=== PATIENT | female | born 1985 | race American Indian/Alaskan Native ===

== ENCOUNTER 2017-01-26 16:33 | Emergency (ER) | payer MEDICAID ==
[2017-01-26 16:46] VITALS: BP 159/93
== END 2017-01-26 23:34 | disposition left against medical advice (07) ==
LOC: ED 16:33
DX: R42 Dizziness and giddiness (principal); R11.0 Nausea; Z53.21 Procedure and treatment not carried out due to patient leaving prior to being seen by health care provider
CPT/HCPCS: 82962

== ENCOUNTER 2017-04-13 13:01 | Emergency (ER) | payer MEDICAID ==
--- NOTE | 2017-04-13 14:17 | XRay Report ---
ROUTINE CHEST, TWO VIEWS: HISTORY: cough. The trachea, heart, mediastinal contour, lung kwan and bony thorax are unremarkable. IMPRESSION: Unremarkable chest x-ray.
[2017-04-13] MEDS ORDERED: ATROVENT IH ONE (16:07)
[2017-04-13] MEDS ORDERED: XOPENEX IH ONE (16:07)
--- NOTE | 2017-04-13 16:07 | Emergency Department Report ---
HPI - General Chief Complaint: Upper Respiratory Infection Time Seen by Provider: 04/13/17 16:00 - HPI HPI: Patient here with family member here she reports that she has shortness of breath and coughing for almost a month. She reports that she is wheezing. She denies any lung disease. Denies any asthma or bronchitis history. Patient has diabetes. She denies any chest pain. She said cough is worse at night. Patient said it started with her having runny nose and nasal congestion. Denies any fever or chills. Denies any nausea or vomiting. Denies any back pain or abdominal pain. Last menstrual period was 02/23/2017. Taking over-the- counter cough and cold without any relief. ED Past Medical Hx - Past Medical History Previous Medical History?: Yes Hx Diabetes: Yes - Surgical History Past Surgical History?: Yes Hx Cholecystectomy: Yes Additional Surgical History: C/S - Family History Family history: diabetes, hypertension - Social History Smoking Status: Current Every Day Smoker Substance Use Type: Alcohol - Medications Home Medications: Home Medications Medication Instructions Recorded Confirmed Last Taken Type ALBUTEROL NEB's [Proventil 0.083% 2.5 mg IH Q4-6H PRN #1 packet 04/13/17 Unknown Rx NEBS] Amoxicillin/K Clav Tab [Augmentin 1 tab PO Q12HR 10 Days #20 tab 04/13/17 Unknown Rx 875 mg] Cetirizine HCl [ZyrTEC] 10 mg PO QAM 14 Days #14 capsule 04/13/17 Unknown Rx Fluticasone [Flonase] 1 spray NS QDAY 14 Days #1 bottle 04/13/17 Unknown Rx guaiFENesin/CODEINE [Robitussin AC] 5 ml PO Q8H PRN #105 ml 04/13/17 Unknown Rx predniSONE [Deltasone] 20 mg PO QDAY 5 Days #5 tab 04/13/17 Unknown Rx ED Review of Systems ROS: Stated complaint: SOB/CP FOR A MONTH W/COUGH Other details as noted in HPI Comment: All other systems reviewed and negative Constitutional: no symptoms reported ENT: congestion. denies: ear pain, throat pain Respiratory: cough, shortness of breath, SOB with exertion, wheezing. denies: orthopnea, SOB at rest, stridor Cardiovascular: denies: chest pain, palpitations, dyspnea on exertion, orthopnea , edema, syncope, paroxysmal nocturnal dyspnea Gastrointestinal: denies: abdominal pain, nausea, vomiting, diarrhea, constipation, hematemesis, melena, hematochezia Genitourinary: denies: dysuria, discharge Musculoskeletal: denies: back pain, joint swelling, arthralgia, myalgia Skin: denies: rash Neurological: denies: headache, numbness, paresthesias, confusion, abnormal gait , vertigo Physical Exam - Physical Exam Vital Signs: Vital Signs 04/13/17 13:31 Temperature 98.7 F Pulse Rate 105 H Respiratory 20 Rate Blood Pressure 156/90 O2 Sat by Pulse 98 Oximetry Vital Signs 04/13/17 04/13/17 04/13/17 13:31 17:19 18:17 Temperature 98.7 F 98.8 F Pulse Rate 105 H 103 H 98 H Respiratory 20 20 Rate Blood Pressure 156/90 Blood Pressure 135/68 [Left] O2 Sat by Pulse 98 96 99 Oximetry General: This is a 31-year-old morbidly obese female that is in no acute distress and nontoxic in appearance Physical Exam: Head: Normocephalic atraumatic Ears:BIateral TM congested without erythema and loss of bony landmarks. Paco EAC with normal exam. No mastoid bone tenderness. Mouth: Moist, no pharyngeal erythema or exudate . No tonsillar erythema or exudate. UVULA midline and oral airways patent. No peritonsillar abscess Neck: Nontender to palpate, supple, normal range of motion. No adenopathy. No c- spine tenderness. Nose: Bilateral nasal mucosa congested with clear drainage. Maxillary and frontal sinuses tender to palpate. Eyes: Sclerae and conjunctiva without injection. Bilateral pupils equal and reactive to light. Bilateral lids are normal. Normal accommodation.BEOMI Lungs: Clear to auscultate bilaterally, no rhonchi wheezes or rales. Normal work of breathing and no chest wall tenderness CV: S1, S2. Regular rate and rhythm negative murmur. Capillary refill is less than 3 seconds Skin: Clean dry and intact, no rashes or lesions Psych: Normal mood and behavior ED Course Vital Signs 04/13/17 13:31 Temperature 98.7 F Pulse Rate 105 H Respiratory 20 Rate Blood Pressure 156/90 O2 Sat by Pulse 98 Oximetry Vital Signs 04/13/17 04/13/17 04/13/17 13:31 17:19 18:17 Temperature 98.7 F 98.8 F Pulse Rate 105 H 103 H 98 H Respiratory 20 20 Rate Blood Pressure 156/90 Blood Pressure 135/68 [Left] O2 Sat by Pulse 98 96 99 Oximetry - Reevaluation(s) Reevaluation #1: 04/13/17 18:30 Patient's with acute bronchitis and was treated with Xopenex 1.25 mg and nebulizer treatment and after nebulizer treatment lung sounds are clear. She is also given a Deltasone 60 mg by mouth in emergency room. Patient was given Rocephin 1 g IM and Tylenol /codeine 10 mils by mouth for cough. 04/13/17 18:34 ED Medical Decision Making - Radiology Data Radiology results: report reviewed Chest x-ray reveals no acute cardiopulmonary processes - Medical Decision Making ED course: She is here report that she is been having cough and shortness of breath and exertion for almost a month. Denies any fever or chills. Patient found to have acute bronchitis, upper respiratory infection with cough and congestion. She was treated with Xopenex 1.25 mg and Atrovent 0.5 mg in emergency room and prednisone 60 mg by mouth. Upon reevaluation if her lungs, lungs sounds better. She has no respiratory distress in the emergency room. Patient able to communicate without having any abnormality breathing. Patient was also given Tylenol codeine 10 mls for coughing, Rocephin 1 g IM to cover acute bronchitis. Chest x-ray revealed no acute cardiopulmonary findings. I discussed diagnosis and treatment plan the patient and also x-ray findings. She voiced understanding patient discharged home with her significant other in stable condition with prescription for cough medicine with codeine, Augmentin, albuterol, prednisone and Zyrtec and Flonase. I encouraged patient that she needs to stop smoking because his smoking can cause her to have bronchitis and prolonged illness. I discussed with her that she needs to follow up with her primary care physician and if she do not have one she is to follow-up with [facility] for follow-up bronchitis in 2-3 days. Patient is stable and discharged home. Critical care attestation.: If time is entered above; I have spent that time in minutes in the direct care of this critically ill patient, excluding procedure time. ED Disposition Clinical Impression: Nicotine abuse, Morbid obesity with BMI of 45.0-49.9, adult, URI with cough and congestion Acute bronchitis Qualifiers: Bronchitis organism: unspecified organism Qualified Code(s): J20.9 - Acute bronchitis, unspecified Disposition: DC-01 TO HOME OR SELFCARE Is pt being admited?: No Does the pt Need Aspirin: No Condition: Stable Instructions: Acute Bronchitis (ED), Upper Respiratory Infection (ED), Acute Cough (ED), How to Stop Smoking (ED), Obesity (ED), Weight Management (ED) Additional Instructions: Please follow-up with your primary care physician in 2-3 days and if he do not have one follow-up at [facility] follow-up bronchitis Take medication as prescribed. Cough medicine causes drowsiness so please do not drive or operate heavy machinery while taking this medication Increase her fluid intake to 2-3 L of water per day this will help to keep dehydrated. Please stop smoking as this is not good for your lungs and it can increase the number of days that year ill. If you're symptoms does not get better over the next 2 days or if your symptoms worsen please return to the emergency room [facility] Prescriptions: ALBUTEROL NEB's [Proventil 0.083% NEBS] 2.5 mg IH Q4-6H PRN #1 packet PRN Reason: WHEEZING/COUGHING Amoxicillin/K Clav Tab [Augmentin 875 mg] 1 tab PO Q12HR 10 Days #20 tab Cetirizine HCl [ZyrTEC] 10 mg PO QAM 14 Days #14 capsule Fluticasone [Flonase] 1 spray NS QDAY 14 Days #1 bottle guaiFENesin/CODEINE [Robitussin AC] 5 ml PO Q8H PRN #105 ml PRN Reason: Cough predniSONE [Deltasone] 20 mg PO QDAY 5 Days #5 tab Referrals: PRIMARY CARE,MD [Primary Care Provider] - 2-3 Days [facility] [Outside] - 2-3 Days Forms: Work/School Release Form(ED), Accompanied Note
[2017-04-13] MEDS ORDERED: DELTASONE PO ONE (16:08)
[2017-04-13 17:20] VITALS: BP 135/68
[2017-04-13] MEDS ORDERED: TYLENOL/CODEINE PO ONE (18:16)
[2017-04-13] MEDS ORDERED: XYLOCAINE 1% MPF 5 mL INFILTRATI ONE (18:27)
[2017-04-13] MEDS ORDERED: ROCEPHIN IM STA (18:27)
== END 2017-04-13 18:55 | disposition home or self-care (01) ==
LOC: ED 13:01
DX: J20.9 Acute bronchitis, unspecified (principal); J06.9 Acute upper respiratory infection, unspecified; F17.200 Nicotine dependence, unspecified, uncomplicated; E66.01 Morbid (severe) obesity due to excess calories; E11.9 Type 2 diabetes mellitus without complications
CPT/HCPCS: 71046; 94640; 96372; 99283; J0696; J7512

== ENCOUNTER 2017-05-04 18:56 | Emergency (ER) | payer SELFPAY ==
[2017-05-04 20:08] LABS: Alanine Aminotransferase 183 units/L (7-56); Albumin 4.2 g/dL (3.9-5); BUN/Creatinine Ratio 15; Blood Urea Nitrogen 9 mg/dL (7-17); Calcium 9.1 mg/dL (8.4-10.2); Hemolysis Index 9
[2017-05-04 20:10] LABS: Basophils # (Auto) 0.1 K/mm3 (0.0-0.1); Basophils % (Auto) 1.2 % (0.0-1.8); Eosinophils # (Auto) 0.2 K/mm3 (0.0-0.4); Eosinophils % (Auto) 2.2 % (0.0-4.3); Hematocrit 40.3 % (30.3-42.9); Hemoglobin 13.2 gm/dl (10.1-14.3); Lymphocytes # (Auto) 2.2 K/mm3 (1.2-5.4); Lymphocytes % (Auto) 32.5 % (13.4-35.0); Mean Corpuscular HGB Conc 33 % (30-34); Mean Corpuscular Hemoglobin 29 pg (28-32); Mean Corpuscular Volume 89 fl (79-97); Monocytes # (Auto) 0.5 K/mm3 (0.0-0.8); Monocytes % (Auto) 6.9 % (0.0-7.3); Platelet Count 222 K/mm3 (140-440); Red Blood Count 4.53 M/mm3 (3.65-5.03)
[2017-05-04 20:24] LABS: Bilirubin,Urine NEG (Negative); Blood,Urine NEG (Negative); Color,Urine Yellow (Yellow); Nitrite,Urine NEG (Negative); Protein,Urine <15 mg/dL mg/dL (Negative); Urobilinogen,Urine < 2.0 mg/dL (<2.0)
[2017-05-04 20:37] LABS: HCG Qualitative,Urine Negative (Negative)
[2017-05-05] MEDS ORDERED: ZOFRAN IV ONE (01:08)
[2017-05-05] MEDS ORDERED: MORPHINE IV ONE (01:08)
--- NOTE | 2017-05-05 01:27 | Emergency Department Report ---
HPI - General Chief Complaint: Abdominal Pain Time Seen by Provider: 05/05/17 00:48 - HPI HPI: 31-year-old female presents the emergency department from home with complaint of upper abdominal pain, nausea and vomiting is been going on for the past 2 weeks. She has a history of pancreatitis and non-insulin- dependent diabetes. She has a surgical history of cholecystectomy. She has not been able to keep down food or water. Therefore she has been unable to take anything for her symptoms prior to presentation. She does not have a current primary care physician. No recent travel or sick contacts at home. ED Past Medical Hx - Past Medical History Hx Diabetes: Yes Additional medical history: pancreatitis - Surgical History Hx Cholecystectomy: Yes Additional Surgical History: C/S - Social History Smoking Status: Former Smoker Substance Use Type: None - Medications Home Medications: Home Medications Medication Instructions Recorded Confirmed Last Taken Type ALBUTEROL NEB's [Proventil 0.083% 2.5 mg IH Q4-6H PRN #1 packet 04/13/17 Unknown Rx NEBS] Amoxicillin/K Clav Tab [Augmentin 1 tab PO Q12HR 10 Days #20 tab 04/13/17 Unknown Rx 875 mg] Cetirizine HCl [ZyrTEC] 10 mg PO QAM 14 Days #14 capsule 04/13/17 Unknown Rx Fluticasone [Flonase] 1 spray NS QDAY 14 Days #1 bottle 04/13/17 Unknown Rx guaiFENesin/CODEINE [Robitussin AC] 5 ml PO Q8H PRN #105 ml 04/13/17 Unknown Rx predniSONE [Deltasone] 20 mg PO QDAY 5 Days #5 tab 04/13/17 Unknown Rx Ondansetron [Zofran Odt] 4 mg PO Q8H PRN #10 tab.rapdis 05/05/17 Unknown Rx traMADol [Ultram 50 MG tab] 50 mg PO Q6HR PRN #12 tablet 05/05/17 Unknown Rx ED Review of Systems ROS: Stated complaint: STOMACH PAIN Other details as noted in HPI Comment: All other systems reviewed and negative Constitutional: denies: chills, fever Eyes: denies: eye pain, eye discharge, vision change ENT: denies: ear pain, throat pain Respiratory: denies: cough, shortness of breath, wheezing Cardiovascular: denies: chest pain, palpitations Gastrointestinal: abdominal pain, nausea, vomiting Genitourinary: denies: urgency, dysuria, discharge Musculoskeletal: denies: back pain, joint swelling, arthralgia Skin: denies: rash, lesions Neurological: denies: headache, weakness, paresthesias Physical Exam - Physical Exam Vital Signs: Vital Signs 05/04/17 19:11 Temperature 97.9 F Pulse Rate 101 H Respiratory 18 Rate Blood Pressure 198/104 Physical Exam: GENERAL: The patient is well-developed well-nourished. HENT: Normocephalic. Atraumatic. Patient has moist mucous membranes. EYES: Extraocular motions are intact. Pupils equal reactive to light bilaterally. NECK: Supple. Trachea is midline. CHEST/LUNGS: Clear to auscultation. There is no respiratory distress noted. HEART/CARDIOVASCULAR: Regular. There is no tachycardia. There is no murmur. ABDOMEN: Abdomen is soft. There is some upper abdominal tenderness palpation. No guarding or rebound tenderness. Patient has normal bowel sounds. Morbidly obese habitus. SKIN: Skin is warm and dry. NEURO: The patient is awake, alert, and oriented. The patient is cooperative. The patient has no focal neurologic deficits. The patient has normal speech. MUSCULOSKELETAL: There is no tenderness or deformity. There is no limitation range of motion. There is no evidence of acute injury. ED Course Vital Signs 05/04/17 19:11 Temperature 97.9 F Pulse Rate 101 H Respiratory 18 Rate Blood Pressure 198/104 ED Medical Decision Making - Lab Data Result diagrams: 05/04/17 19:32 05/04/17 19:32 - Radiology Data Radiology results: report reviewed, image reviewed interpreted by me: Chest x-ray does not show any acute process. There are no pleural effusions, obvious pneumonia and there is no pneumothorax. EXAM: CT ABDOMEN PELVIS W CON HISTORY: abdominal pain, N/V, elevated LFTs COMPARISON: None available. TECHNIQUE: Contiguous axial images were obtained. Additional sagittal and coronal reformatted images were obtained. Administration of IV contrast given per institution protocol. Images submitted for interpretation. 100 cc Omnipaque 350. FINDINGS: Lung bases are clear. Diffuse fatty infiltration of the liver. Liver is enlarged measuring 27 centimeters. Gallbladder surgically absent. No biliary dilatation. The common bile duct measures 5 millimeters. Homogeneous enhancement spleen and pancreas. No adrenal mass. No solid renal lesion. No hydronephrosis. Aorta and IVC normal in caliber. Urinary bladder, uterus, ovaries are grossly unremarkable. No free fluid. There is a borderline enlarged left external iliac chain lymph node measuring 13 x 12 millimeters (series 3, image 161). There are so-so borderline enlarged right external iliac chain lymph node measuring 11 by 10 millimeters. No enlarged inguinal lymph nodes. Large and small bowel loops normal in caliber. The appendix is normal in caliber. No focal inflammatory changes the bowel. Lumbar vertebral body heights are preserved. Bony pelvis is grossly intact. IMPRESSION: No acute inflammatory changes of the abdomen and pelvis. Mild to moderate enlargement of the liver with prominent fatty infiltration of the liver. No focal enhancing hepatic mass. Gallbladder surgically absent. No biliary dilatation. There are borderline enlarged external iliac chain lymph nodes. These may be reactive. If clinically indicated, followup exam within 6 months could be performed to ensure stability. Transcribed By: RIKY Dictated By: JHON ALEJANDRA MD Electronically Authenticated By: JHON ALEJANDRA MD Signed Date/Time: 05/04/17 6230 - Medical Decision Making Patient presents with a few weeks of upper abdominal pain, nausea and vomiting. She has some reproducible abdominal tenderness to palpation but no guarding or rebound tenderness. Abdomen does not appear to be toxic or rigid. Labs show hyperglycemia with a blood sugar of about 230 but no signs of diabetic ketoacidosis. She had elevated LFTs with AST and ALT of about [address] of the abdomen and pelvis shows mild to moderate hepatomegaly and fatty liver disease but no signs of any liver masses, infection, no signs of pancreatitis. She was given a single dose of nausea and pain medication and upon reevaluation she is feeling improved. She was able to pass an oral challenge and keep down some water. Vital signs stable including being afebrile. Patient has been updated regarding the lab and imaging results. She appears safe for discharge home at this time. She will stay away from any Tylenol or alcohol. She will increase her oral rehydration. She will follow- up with her primary care physician. She has been given a referral for gastroenterology to discuss her hepatomegaly, fatty liver disease and transaminitis. She will return to the ER with any worsening of her symptoms or any acute distress. - Differential Diagnosis hepatitis, pancreatitis, gastritis, fatty liver disease Critical Care Time: No Critical care attestation.: If time is entered above; I have spent that time in minutes in the direct care of this critically ill patient, excluding procedure time. ED Disposition Clinical Impression: Transaminitis, Fatty liver, Hepatomegaly Abdominal pain Qualifiers: Abdominal location: upper abdomen, unspecified Qualified Code(s): R10.10 - Upper abdominal pain, unspecified Nausea & vomiting Qualifiers: Vomiting type: unspecified Vomiting Intractability: non-intractable Qualified Code(s): R11.2 - Nausea with vomiting, unspecified Hypertension Qualifiers: Hypertension type: essential hypertension Qualified Code(s): I10 - Essential ( primary) hypertension Disposition: TO HOME OR SELFCARE Is pt being admited?: No Condition: Stable Instructions: Acute Nausea and Vomiting (ED), Non-Alcoholic Fatty Liver Disease (ED), Abdominal Pain (ED), Hypertension (ED) Additional Instructions: Please follow up with a primary care physician in the next few days. I have given you a local toy painter, Dr. Navarro, to follow up regarding your elevated liver enzymes, the fatty liver disease seen on CT scan, and your abdominal pain with nausea and vomiting that you has been dealing with for the past few weeks. Increase your oral rehydration. Return to the emergency Department with any worsening of your symptoms or any acute distress. You have been prescribed a medication that is sedating and therefore should not be taken prior to driving, working, and responsible for children and in no way should be mixed with alcohol of any quantity. Try and stay away from foods that are high in salt and caffeinated products to help with your blood pressure. Keep a blood pressure log. Prescriptions: Ondansetron [Zofran Odt] 4 mg PO Q8H PRN #10 tab.rapdis PRN Reason: Nausea traMADol [Ultram 50 MG tab] 50 mg PO Q6HR PRN #12 tablet PRN Reason: Pain Referrals: PRIMARY CARE, [Primary Care Provider] - BLAISE KELLY MD [Staff Physician] - [facility] Forms: Work/School Release Form(ED) Time of Disposition: 04:54
[2017-05-05] MEDS ORDERED: NACL ONE (01:59)
--- NOTE | 2017-05-05 03:17 | Cat Scan Report ---
FINAL REPORT EXAM: CT ABDOMEN PELVIS W CON HISTORY: abdominal pain, N/V, elevated LFTs COMPARISON: None available. TECHNIQUE: Contiguous axial images were obtained. Additional sagittal and coronal reformatted images were obtained. Administration of IV contrast given per institution protocol. Images submitted for interpretation. 100 cc Omnipaque 350. FINDINGS: Lung bases are clear. Diffuse fatty infiltration of the liver. Liver is enlarged measuring 27 centimeters. Gallbladder surgically absent. No biliary dilatation. The common bile duct measures 5 millimeters. Homogeneous enhancement spleen and pancreas. No adrenal mass. No solid renal lesion. No hydronephrosis. Aorta and IVC normal in caliber. Urinary bladder, uterus, ovaries are grossly unremarkable. No free fluid. There is a borderline enlarged left external iliac chain lymph node measuring 13 x 12 millimeters (series 3, image 161). There are so-so borderline enlarged right external iliac chain lymph node measuring 11 by 10 millimeters. No enlarged inguinal lymph nodes. Large and small bowel loops normal in caliber. The appendix is normal in caliber. No focal inflammatory changes the bowel. Lumbar vertebral body heights are preserved. Bony pelvis is grossly intact. IMPRESSION: No acute inflammatory changes of the abdomen and pelvis. Mild to moderate enlargement of the liver with prominent fatty infiltration of the liver. No focal enhancing hepatic mass. Gallbladder surgically absent. No biliary dilatation. There are borderline enlarged external iliac chain lymph nodes. These may be reactive. If clinically indicated, followup exam within 6 months could be performed to ensure stability.
[2017-05-05 05:14] VITALS: BP 138/93
== END 2017-05-05 05:14 | disposition home or self-care (01) ==
LOC: ED 18:56
DX: K76.0 Fatty (change of) liver, not elsewhere classified (principal); I10 Essential (primary) hypertension; R74.0 Nonspecific elevation of levels of transaminase and lactic acid dehydrogenase [LDH]; E11.9 Type 2 diabetes mellitus without complications; Z87.891 Personal history of nicotine dependence
CPT/HCPCS: 36415; 74177; 80053; 81001; 81025; 83690; 85025; 96374; 96375; 99284; J2270; J2405; Q9967

== ENCOUNTER 2019-11-12 14:00 | Emergency (ER) | payer MEDICAID ==
--- NOTE | 2019-11-12 14:56 | Emergency Department Report ---
Blank Doc - Documentation Documentation: 33-year-old female that presents with left sided chest pain, SOB with radiation to left upper arm. This initial assessment/diagnostic orders/clinical plan/treatment(s) is/are subject to change based on patient's health status, clinical progression and re- assessment by fellow clinical providers in the ED. Further treatment and workup at subsequent clinical providers discretion. Patient/guardians urged not to elope from the ED as their condition may be serious if not clinically assessed and managed. Initial orders include: 1- Patient sent to [facility] for further evaluation and treatment 2- cardiac workup
[2019-11-12 16:12] LABS: Basophils # (Auto) 0.1 K/mm3 (0.0-0.1); Basophils % (Auto) 1.3 % (0.0-1.8); Eosinophils # (Auto) 0.1 K/mm3 (0.0-0.4); Eosinophils % (Auto) 1.6 % (0.0-4.3); Hematocrit 40.7 % (30.3-42.9); Hemoglobin 13.8 gm/dl (10.1-14.3); Lymphocytes # (Auto) 2.8 K/mm3 (1.2-5.4); Lymphocytes % (Auto) 30.3 % (13.4-35.0); Mean Corpuscular HGB Conc 34 % (30-34); Mean Corpuscular Volume 88 fl (79-97); Monocytes # (Auto) 0.6 K/mm3 (0.0-0.8); Monocytes % (Auto) 6.2 % (0.0-7.3); Platelet Count 218 K/mm3 (140-440); Red Blood Count 4.62 M/mm3 (3.65-5.03); Red Cell Distribution Width 14.1 % (13.2-15.2)
[2019-11-12 16:27] LABS: Alanine Aminotransferase 117 units/L (7-56); Albumin 4.1 g/dL (3.9-5); Blood Urea Nitrogen 6 mg/dL (7-17); Calcium 9.9 mg/dL (8.4-10.2); Hemolysis Index 8
[2019-11-12 16:28] LABS: BUN/Creatinine Ratio 9
--- NOTE | 2019-11-12 17:11 | XRay Report ---
CHEST PA AND LATERAL VIEWS INDICATION: Chest Pain. COMPARISON: None. FINDINGS: Support devices: None. Heart: Within normal limits. Lungs/Pleura: No acute pulmonary or pleural findings. IMPRESSION: 1. No acute findings. Signer Name: Justin Taylor MD Signed: 11/12/2019 5:07 PM Workstation Name: [id number]
[2019-11-12 21:56] VITALS: BP 148/85
--- NOTE | 2019-11-12 21:59 | Emergency Department Report ---
ED General Adult HPI - General Chief complaint: Chest Pain Stated complaint: CP/NUMB ARM AND HAND Time Seen by Provider: 11/12/19 14:55 Source: patient Mode of arrival: Ambulatory Limitations: No Limitations - History of Present Illness Initial comments: Chief complaint: Left arm pain HPI: This is a 33-year-old female with history of diabetes mellitus, hypertension, pancreatitis who presents with left arm pain upon awakening this morning. She has pain from her medial portion of her elbow to her third fourth and fifth digits. She formally worked at a [employer]. She has worsening stiffness in her fingers. Pain is worse with movement. She had chest pain also earlier today. Dull 3 out of 10 left-sided chest pain with shortness of breath. Chest pain shortness of breath has spontaneously resolved. Forearm pain has worsened. Forearm pain is worse with finger and elbow movement. -: Gradual, This morning Location: left, upper extremity Quality: burning, aching Consistency: constant Improves with: none Worsens with: movement Associated Symptoms: chest pain, shortness of breath Treatments Prior to Arrival: none - Related Data Previous Rx's Medication Instructions Recorded Last Taken Type ALBUTEROL NEB's [Proventil 0.083% 2.5 mg IH Q4-6H PRN #1 packet 04/13/17 Unknown Rx NEBS] Amoxicillin/K Clav Tab [Augmentin 1 tab PO Q12HR 10 Days #20 tab 04/13/17 Unknown Rx 875 mg] Cetirizine HCl [ZyrTEC] 10 mg PO QAM 14 Days #14 capsule 04/13/17 Unknown Rx Fluticasone [Flonase] 1 spray NS QDAY 14 Days #1 bottle 04/13/17 Unknown Rx guaiFENesin/CODEINE [Robitussin AC] 5 ml PO Q8H PRN #105 ml 04/13/17 Unknown Rx predniSONE [Deltasone] 20 mg PO QDAY 5 Days #5 tab 04/13/17 Unknown Rx Ondansetron [Zofran Odt] 4 mg PO Q8H PRN #10 tab.rapdis 05/05/17 Unknown Rx traMADoL [Ultram 50 MG tab] 50 mg PO Q6HR PRN #12 tablet 05/05/17 Unknown Rx Ibuprofen [Motrin 400 MG tab] 400 mg PO TID 5 Days #15 tablet 11/12/19 Unknown Rx Allergies Allergy/AdvReac Type Severity Reaction Status Date / Time No Known Allergies Allergy Verified 04/13/17 13:31 ED Review of Systems ROS: Stated complaint: CP/NUMB ARM AND HAND Other details as noted in HPI Comment: All other systems reviewed and negative Constitutional: denies: fever, malaise Respiratory: shortness of breath. denies: cough Cardiovascular: chest pain Gastrointestinal: denies: abdominal pain, nausea, vomiting ED Past Medical Hx - Past Medical History Previous Medical History?: Yes Hx Hypertension: Yes Hx Diabetes: Yes Additional medical history: pancreatitis - Surgical History Past Surgical History?: Yes Hx Cholecystectomy: Yes Additional Surgical History: C/S - Social History Smoking Status: Never Smoker Substance Use Type: None - Medications Home Medications: Home Medications Medication Instructions Recorded Confirmed Last Taken Type ALBUTEROL NEB's [Proventil 0.083% 2.5 mg IH Q4-6H PRN #1 packet 04/13/17 Unknown Rx NEBS] Amoxicillin/K Clav Tab [Augmentin 1 tab PO Q12HR 10 Days #20 tab 04/13/17 Unknown Rx 875 mg] Cetirizine HCl [ZyrTEC] 10 mg PO QAM 14 Days #14 capsule 04/13/17 Unknown Rx Fluticasone [Flonase] 1 spray NS QDAY 14 Days #1 bottle 04/13/17 Unknown Rx guaiFENesin/CODEINE [Robitussin AC] 5 ml PO Q8H PRN #105 ml 04/13/17 Unknown Rx predniSONE [Deltasone] 20 mg PO QDAY 5 Days #5 tab 04/13/17 Unknown Rx Ondansetron [Zofran Odt] 4 mg PO Q8H PRN #10 tab.rapdis 05/05/17 Unknown Rx traMADoL [Ultram 50 MG tab] 50 mg PO Q6HR PRN #12 tablet 05/05/17 Unknown Rx Ibuprofen [Motrin 400 MG tab] 400 mg PO TID 5 Days #15 tablet 11/12/19 Unknown Rx ED Physical Exam - General Limitations: No Limitations General appearance: alert, in no apparent distress, other (Pleasant smiling talkative) - Head Head exam: Present: atraumatic, normocephalic - Eye Eye exam: Present: normal appearance - ENT ENT exam: Present: mucous membranes moist - Neck Neck exam: Present: normal inspection, full ROM - Respiratory Respiratory exam: Present: normal lung sounds bilaterally. Absent: respiratory distress, wheezes, rales, rhonchi - Cardiovascular Cardiovascular Exam: Present: regular rate, normal rhythm, normal heart sounds. Absent: systolic murmur, diastolic murmur, rubs, gallop - GI/Abdominal GI/Abdominal exam: Present: soft, normal bowel sounds. Absent: distended, tenderness, guarding, rebound - Expanded Upper Extremity Exam Left Shoulder Exam: Present: normal inspection, full ROM. Absent: tenderness, swelling Upper Arm exam: Present: normal inspection, full ROM Elbow exam: Present: full ROM, other (Mild tenderness to palpation at the medial portion of the left elbow). Absent: swelling, abrasion, laceration, ecchymosis, deformity Forearm Wrist exam: Present: normal inspection, full ROM Hand Wrist exam: Present: normal inspection, full ROM, tenderness (Full range of motion all 5 digits left hand pain worsens with passive extension digits 345) Neuro motor exam: Present: wrist extension intact, thumb opposition intact, thumb IP flexion intact, thumb adduction intact, fingers 2-5 abduction intact Neurosensory exam: Present: radial nerve intact, ulnar nerve intact, median nerve intact Vascular: Present: radial pulse (2+ radial pulse intact) - Back Exam Back exam: Present: normal inspection - Neurological Exam Neurological exam: Present: alert, oriented X3 - Psychiatric Psychiatric exam: Present: normal affect, normal mood - Skin Skin exam: Present: warm, dry, intact, normal color. Absent: rash ED Course Vital Signs 11/12/19 14:56 Temperature 98.3 F Pulse Rate 107 H Respiratory 18 Rate Blood Pressure 142/92 O2 Sat by Pulse 100 Oximetry ED Medical Decision Making - Lab Data Result diagrams: 11/12/19 15:40 11/12/19 15:40 Laboratory Results - last 24 hr 11/12/19 11/12/19 11/12/19 15:40 15:40 15:40 WBC 9.3 RBC 4.62 Hgb 13.8 Hct 40.7 MCV 88 MCH 30 MCHC 34 RDW 14.1 Plt Count 218 Lymph % (Auto) 30.3 [place] % (Auto) 6.2 Eos % (Auto) 1.6 Baso % (Auto) 1.3 Lymph # 2.8 [place] # 0.6 Eos # 0.1 Baso # 0.1 Seg Neutrophils % 60.6 Seg Neutrophils # 5.6 Sodium 136 L Potassium 4.7 Chloride 98.4 Carbon Dioxide 22 Anion Gap 20 BUN 6 L Creatinine 0.7 Estimated GFR > 60 BUN/Creatinine Ratio 9 Glucose 288 H Calcium 9.9 Total Bilirubin 0.50 AST 86 H ALT 117 H Alkaline Phosphatase 86 Troponin T < 0.010 Total Protein 8.5 H Albumin 4.1 Albumin/Globulin Ratio 0.9 HCG, Qual Negative 11/12/19 18:03 WBC RBC Hgb Hct MCV MCH MCHC RDW Plt Count Lymph % (Auto) [place] % (Auto) Eos % (Auto) Baso % (Auto) Lymph # [place] # Eos # Baso # Seg Neutrophils % Seg Neutrophils # Sodium Potassium Chloride Carbon Dioxide Anion Gap BUN Creatinine Estimated GFR BUN/Creatinine Ratio Glucose Calcium Total Bilirubin AST ALT Alkaline Phosphatase Troponin T < 0.010 Total Protein Albumin Albumin/Globulin Ratio HCG, Qual - EKG Data 11/12/19 21:58 EKG obtained 1418 Normal sinus rhythm rate 98 bpm normal axis prolonged QTC no ST elevation nonspecific T wave pattern - Radiology Data Radiology results: report reviewed Chest radiograph no acute process according to radiology impression - Medical Decision Making 1. Transient nondescript chest pain: Likely musculoskeletal I do not suspect pulmonary embolism or acute coronary syndrome. Chest radiograph ruled out pneumothorax, pneumonia. 2. Left forearm pain upon awakening: I suspect ulnar nerve compression syndrome versus peripheral neuropathy associated with diabetes mellitus. Prescribed ibuprofen. Referred to orthopedic surgeon. Critical care attestation.: If time is entered above; I have spent that time in minutes in the direct care of this critically ill patient, excluding procedure time. ED Disposition Clinical Impression: Neuropathy, Chest pain Disposition: - TO HOME OR SELFCARE Is pt being admited?: No Does the pt Need Aspirin: No Condition: Stable Instructions: Chest Pain (ED), Peripheral Neuropathy (ED) Prescriptions: Ibuprofen [Motrin 400 MG tab] 400 mg PO TID 5 Days #15 tablet Referrals: KURTIS LIEBERMAN MD [Primary Care Provider] - 3-5 Days TONYA ADAM MD [Staff Physician] - 3-5 Days
[2019-11-12] MEDS ORDERED: IBUPROFEN 800 MG TAB PO ONE (22:01)
== END 2019-11-12 22:10 | disposition home or self-care (01) ==
LOC: ED 14:00
DX: R07.89 Other chest pain (principal); G62.9 Polyneuropathy, unspecified; I10 Essential (primary) hypertension; E11.9 Type 2 diabetes mellitus without complications; Z90.49 Acquired absence of other specified parts of digestive tract; Z98.890 Other specified postprocedural states; Z79.1 Long term (current) use of non-steroidal anti-inflammatories (NSAID); Z79.2 Long term (current) use of antibiotics; Z79.899 Other long term (current) drug therapy
CPT/HCPCS: 36415; 71046; 80053; 84484; 84703; 85025